=== PATIENT | male | born 1995 | race Caucasian/White ===

== ENCOUNTER 2017-11-04 22:39 | Emergency (ER) | payer SELFPAY ==
[~2017-11-04] VITALS: Ht 172.7 cm; Wt 79.8 kg
[2017-11-04 22:51] VITALS: BP_SYST 136
[2017-11-05] MEDS ORDERED: NACL 0.9% 1,000 ML IV ONE (01:00)
[2017-11-05 01:18] VITALS: BP_SYST 131
== END 2017-11-05 01:18 | disposition home or self-care (01) ==
LOC: SED 22:39
DX: E86.0 Dehydration (principal); R53.1 Weakness
CPT/HCPCS: 99281